=== PATIENT | female | born 1985 | race African-American/Black ===

== ENCOUNTER 2018-05-04 03:25 | Emergency (ER) | payer OTHER ==
[~2018-05-04] VITALS: Ht 172.7 cm; Wt 72.6 kg
[2018-05-04] MEDS ORDERED: NORCO 5-325 TA1 EACH ORAL (03:37)
[2018-05-04] MEDS ORDERED: XARELTO10 MG ORAL (03:37)
--- NOTE | 2018-05-04 04:26 | Emergency Room Report ---
History of Present Illness General Chief Complaint: Lower Extremity Injury Source: Patient Present Illness HPI Patient presents with reports of right foot and leg injury end of february Patient reports that she was seen at a another facility [facility] At that time imaging was negative Patient however had increased swelling of her leg Reports that she was seen at [facility] had ultrasound which showed positive DVT patient has been on xarelto Patient reports that she had her clinic appointment today however missed her appointment And she was concerned about the ongoing swelling of her leg Patient also reports pain to the leg with increased walking Allergies: Coded Allergies: No Known Allergies (Unverified , 05/04/18) Patient History Past Medical History: see triage record Pertinent Family History: none Last Menstrual Period: 04/05/18 Now: No : 5 Para: 1 Reviewed Nursing Documentation: PMH: Agreed; PSxH: Agreed Nursing Documentation-PMH Past Medical History: No History, Except For Review of Systems All Other Systems: negative except mentioned in HPI Physical Exam Vital Signs Date Time Temp Pulse Resp B/P (MAP) Pulse Ox O2 Delivery O2 Flow Rate FiO2 05/04/18 03:30 98.1 94 18 124/69 99 Room Air 98.1 Sp02 EP Interpretation: reviewed, normal General Appearance: no apparent distress Head: normocephalic, atraumatic Eyes: bilateral eye PERRL ENT: normal pharynx Neck: supple Respiratory: lungs clear Cardiovascular #1: regular rate, rhythm Musculoskeletal: swelling - Right lower extremity Neurologic: alert, oriented x3, responsive Skin: other - Edema involving the right leg Lymphatic: other Medical Decision Making Diagnostic Impression: Primary Impression: DVT Additional Impression: leg swelling ER Course Patient has significant anomaly including right-sided DVT Given that the patient has continued swelling consideration for declotting needs to be made Patient requires follow-up with her clinic and further outpatient vascular specialty referral And otherwise stable for close outpatient follow-up Last Vital Signs Date Time Temp Pulse Resp B/P (MAP) Pulse Ox O2 Delivery O2 Flow Rate FiO2 05/04/18 03:30 98.1 94 18 124/69 99 Room Air 98.1 Status: improved Disposition: HOME, SELF-CARE Condition: Stable Referrals: [facility],REFERRING (PCP) Patient Instructions: Deep Vein Thrombosis, Peripheral Edema Additional Instructions: Follow with her designated clinic as soon as possible. you reported missing your appointment today please contact the clinic to set up another appointment Wilbur Reese DO May 04, 2018 04:26
[2018-05-04] MEDS ORDERED: Tylenol #3 tab (300mg/30mg) ORAL ONE (04:30)
[2018-05-04] MEDS ORDERED: Tylenol #3 tab (300mg/30mg) ONE (04:38)
[2018-05-04 04:59] VITALS: BP 0/0
== END 2018-05-04 04:59 | disposition home or self-care (01) ==
LOC: EMR 03:50
DX: I82.401 Acute embolism and thrombosis of unspecified deep veins of right lower extremity (principal); Z79.02 Long term (current) use of antithrombotics/antiplatelets
CPT/HCPCS: 99283